=== PATIENT | female | born 1975 | race Caucasian/White ===

== ENCOUNTER 2019-11-21 04:59 | Day surgery (SDC) | payer OTHER ==
[2019-11-18 13:49] VITALS: BMI 37.8
--- NOTE | 2019-11-21 10:47 | HP ---
History & Physical Update - History History: No Change - Physical Physical: No Change - Assessment Assessment: No Change - Plan Plan: No Change (No change in HP)
[2019-11-21] MEDS ORDERED: IBUPROFEN 400 MG TABLET (FP) PO PRN (10:48)
[2019-11-21] MEDS ORDERED: ACETAMINOPHEN 325 MG TABLET (FP) PO PRN (10:48)
--- NOTE | 2019-11-21 10:48 | OP ---
Operative Note - Note: Operative Date: 11/21/19 Pre-Operative Diagnosis: Missed Operation: Suction DC Post-Operative Diagnosis: Same as Pre-op Surgeon: Elvira Lott Anesthesia: General Operative Report Dictated: Yes
[2019-11-21] MEDS ORDERED: OXYTOCIN 20 UNITS in 0.9% NS 20 UNIT/1,000 ML INFUS.BAG IV SCH (11:00)
[2019-11-21 12:13] LABS: INR 0.99 (0.83-1.09); PROTHROMBIN TIME (PATIENT) 11.7 SEC (9.7-13.0)
[2019-11-21] MEDS ORDERED: LIDOCAINE HCL/PF 2% SDV 5ML VIAL ONE (13:38)
[2019-11-21] MEDS ORDERED: PROPOFOL 20 ML ONE (13:39)
[2019-11-21] MEDS ORDERED: MIDAZOLAM HCL 2 MG/2 ML SINGLE DOSE VIAL ONE (13:39)
[2019-11-21] MEDS ORDERED: OXYTOCIN 10 UNITS/ML VIAL ONE (16:45)
[2019-11-21] MEDS ORDERED: ONDANSETRON 4 MG/2 ML VIAL IVPUSH PRN (16:57)
[2019-11-21] MEDS ORDERED: oxyCODONE HCL 5 MG TABLET PO PRN (16:57)
[2019-11-21] MEDS ORDERED: PROMETHAZINE HCL 25 MG/1 ML VIAL IVPUSH PRN (16:57)
[2019-11-21 17:24] VITALS: PULSE 88; TEMP 97.7
[2019-11-21 18:22] VITALS: BP 127/69
--- NOTE | 2019-11-30 08:34 | PATH ---
Surgical Pathology Report Patient Name: JOHNNA CHRISTY [facility]. Rec. #: [id number] /Age/Gender: 1975 (Age: 44) / F Account: [id number] Location: [facility] Taken: 11/21/2019 Received: 11/22/2019 Reported: 11/30/2019 Physicians: Elvira Lott M.D. Specimen(s) Received CONTENTS OF UTERUS Clinical History Missed Final Diagnosis CONTENTS OF UTERUS, SUCTION DILATION AND CURETTAGE: COMPLETE HYDATIDIFORM MOLE (DIPLOID/P57 -). SEE COMMENT. Marker Result Ploidy P57 Negative DNA Index/Ploidy 1.00 Diploid % S-Phase 11.7 Comment: The p57 result refers to villous stromal cells and villous cytotrophoblast. Intermediate trophoblast is p57 positive. This case was sent to Dr. Reinaldo Molina from [place], [place] ([id number]) the diagnosis above reflects his opinion. Electronically Signed Neelam Rivers M.D. Addendum Reported: 11/30/2019 Addendum Diagnosis Case discussed with Dr. Lott, 11/30/19. Neelam Rivers M.D. Gross Description Received in formalin labeled "contents of uterus," is a 19.0 x 12.5 x 3.0 cm aggregate of spaulding red soft tissue fragments. Villous tissue is identified. No somatic tissue is identified. Inside Polisher sections are submitted in 3 cassettes. /11/22/2019 saudi/11/22/2019
--- NOTE | 2019-11-30 16:25 | OP ---
DATE OF OPERATION: 11/21/2019 PREOPERATIVE DIAGNOSIS: Missed . OPERATION: Suction dilatation and curettage. POSTOPERATIVE DIAGNOSIS: Missed . SURGEON: Elvira Lott MD ESTIMATED BLOOD LOSS: Approximately 500 mL. DESCRIPTION OF PROCEDURE: Patient was taken to the operating room, placed in supine position, prepped and draped in the usual sterile fashion. Timeout was performed in accordance with hospital regulation. Speculum was placed in the vagina. Anterior lip of the cervix was grasped. Large amount of Suction curettage was then performed. Specimen was submitted to pathology. All instruments were then removed. Uterine massage was done with pitocin. Patient tolerated the procedure well, was taken to recovery room in stable condition. ELVIRA LOTT M.D. [id number] MTDD
== END 2019-11-21 18:10 | disposition home or self-care (01) ==
LOC: JASU-SURG 04:59
PROVIDERS: ATTEND Obstetrics & Gynecology
PROC: 10D17ZZ Extraction of Products of Conception, Retained, Via Natural or Artificial Opening (ICD-10-PCS; principal; 2019-11-21 13:00)
DX: O02.1 Missed abortion (principal)
CPT/HCPCS: 36415; 85610; 86900; 88305-TC; 94760

== ENCOUNTER 2020-01-10 05:13 | Day surgery (SDC) | payer OTHER ==
[2020-01-06 15:59] VITALS: BMI 37.8
[2020-01-10] MEDS ORDERED: CEFAZOLIN 2 GM/D5W 2 GM/50 ML ML IVPB ONE (07:05)
--- NOTE | 2020-01-10 15:57 | HP ---
History & Physical Update - History History: No Change - Physical Physical: No Change - Assessment Assessment: No Change - Plan Plan: No Change
[2020-01-10] MEDS ORDERED: MIDAZOLAM HCL 2 MG/2 ML SINGLE DOSE VIAL ONE (15:59)
[2020-01-10] MEDS ORDERED: ROCURONIUM BROMIDE 50 MG/5 ML SYRINGE ONE (15:59)
[2020-01-10] MEDS ORDERED: PROPOFOL 20 ML ONE (15:59)
[2020-01-10] MEDS ORDERED: SUCCINYLCHOLINE CHLORIDE 200 MG/10 ML SYRINGE ONE (15:59)
[2020-01-10] MEDS ORDERED: fentaNYL CITRATE 250 MCG/5 ML VIAL ONE (15:59)
[2020-01-10] MEDS ORDERED: ceFAZolin SODIUM 1 GM VIAL ONE (16:03)
[2020-01-10] MEDS ORDERED: LIDOCAINE HCL/PF 2% SDV 5ML VIAL ONE (16:03)
[2020-01-10] MEDS ORDERED: SEVOFLURANE 250 ML BTL ONE (16:04)
[2020-01-10] MEDS ORDERED: DESFLURANE GAS 240 ML BOTTLE IH ONE (16:06)
[2020-01-10] MEDS ORDERED: ceFAZolin SODIUM 1 GM VIAL IVPB ONE (16:25)
[2020-01-10] MEDS ORDERED: ONDANSETRON 4 MG/2 ML VIAL IVPUSH PRN (16:30)
[2020-01-10] MEDS ORDERED: LACTATED RINGERS SOLUTION 1,000 ML IV SCH (16:30)
[2020-01-10] MEDS ORDERED: ACETAMINOPHEN 1000 MG/100 ML VIAL (NON FORMULARY) IVPB PRN (16:31)
[2020-01-10] MEDS ORDERED: BUPIVACAINE HCL/PF 0.5% (5 MG/ML) 30 ML VIAL IJ ONE ×2 (16:50)
[2020-01-10] MEDS ORDERED: NEOSTIGMINE METHYLSULFATE 0.5 MG/ML - 10 ML MDV ONE (18:14)
[2020-01-10] MEDS ORDERED: KETOROLAC TROMETHAMINE 30 MG/1 ML VIAL ONE (18:21)
[2020-01-10] MEDS ORDERED: DEXAMETHASONE SOD PHOSPHATE 4 MG/1 ML VIAL ONE (18:21)
--- NOTE | 2020-01-10 18:38 | OP ---
Operative Note - Note: Operative Date: 01/10/20 Pre-Operative Diagnosis: General Trophoblastic Disease Operation: Robotic laprascopic abdominal hysterectomy, bilateral salpingectomy, cervical myomectomy Post-Operative Diagnosis: Same as Pre-op Surgeon: Denisha Santiago Terrapin Fisher: Tavo Jackson Anesthesia: General Specimens Removed: Uterus, bilateral tubes, cervical fibroid Estimated Blood Loss (mls): 100 Drains, Volume Out (mls): 400 (arrieta) Fluid Volume Replaced (mls): 900 (LR) Operative Report Dictated: Yes
--- NOTE | 2020-01-10 18:39 | SURG ---
Surgery Mechanical Applications Engineer Note Mechanical Applications Engineer: Tavo Jackson PA-C Date of Service: 01/10/20 Diagnosis: General Trophoblastic Disease Procedure: Robotic laprascopic hysterectomy, bilateral salpingectomy, cervical myomectomy I was present for the entirety of the operative procedure. For further detail, please refer to operative report. Visit type - Case Type Case Type: Scheduled - New patient This patient is new to me today: Yes Date on this admission: 01/10/20
[2020-01-10] MEDS ORDERED: ACETAMINOPHEN 1000 MG/100 ML VIAL (NON FORMULARY) IVPB ONE (18:40)
[2020-01-10] MEDS ORDERED: ACETAMINOPHEN INJECTION 100 ML IVPB ONE (20:09)
[2020-01-10] MEDS: oxyCODONE HCL 5 MG TABLET PO PRN (23:00)
[2020-01-10] MEDS: CEFAZOLIN 2 GM/D5W 2 GM/50 ML ML IVPB SCH (23:20)
[2020-01-11] MEDS: ACETAMINOPHEN 325 MG TABLET (FP) PO PRN ×2 (05:10→10:29)
[2020-01-11] MEDS: CEFAZOLIN 2 GM/D5W 2 GM/50 ML ML IVPB SCH (08:17)
[2020-01-11 08:24] LABS: HEMATOCRIT 36.4 % (32.4-45.2); HEMOGLOBIN 11.6 GM/dL (10.7-15.3); MCH 26.7 pg (25.7-33.7); MEAN CELL VOLUME 83.4 fl (80-96); PLATELET COUNT 286 K/MM3 (134-434); RBC 4.36 M/mm3 (3.60-5.2); RDW 13.7 % (11.6-15.6)
[2020-01-11 08:39] LABS: BLOOD UREA NITROGEN 7.8 mg/dL (7-18); CALCIUM 8.2 mg/dL (8.5-10.1); CREATININE 0.6 mg/dL (0.55-1.3); POTASSIUM 3.9 mmol/L (3.5-5.1)
[2020-01-11] MEDS ORDERED: ENOXAPARIN NA (PORCINE) 40 MG/0.4 ML DISP.SYRIN SQ SCH (10:00)
--- NOTE | 2020-01-11 10:21 | PN ---
Progress Note (short form) - Note Progress Note: POD 1, s/p Robotic laparoscopic hysterectomy, bilateral salpingectomy, cervical myomectomy Pt seen and examined. Reports some pain this AM, improved by pain regimen. Has not been oob yet. Has not eaten yet. No n/v. Denies cp/sob, n/v/d, no issues overnight. Vital Signs Temp 99.2 F 01/11/20 06:00 Pulse 98 H 01/11/20 06:00 Resp 20 01/11/20 06:00 BP 120/99 01/11/20 06:00 Pulse Ox 98 01/11/20 06:00 Intake & Output 01/10/20 01/10/20 01/11/20 11:59 23:59 11:59 Intake Total 1200 Output Total 450 Balance 750 Intake: IV 1200 Output: Urine 400 Estimated Blood Loss 50 CBC, BMP 01/11/20 07:07 01/11/20 07:07 Gen: awake, alert, nad Resp: unlabored on RA Abdo: soft, minimal ttp at incision sites. Incisions c/d/i with dermabond in place, no erythema or drainage. Hypoactive bowel sounds A/P: 44 y/o F w/ PMHx obesity, trophoblastic disease, now POD 1, s/p Robotic laparoscopic hysterectomy, bilateral salpingectomy, cervical myomectomy. doing well post op, labs reviewed plan for d/c today all d/c instructions reviewed with pt at length, pt verbalized understanding. d/w attending Dr Santiago
[2020-01-11] MEDS ORDERED: oxyCODONE HCL 5 MG TABLET PO PRN (10:24)
[2020-01-11] MEDS ORDERED: ACETAMINOPHEN 325 MG TABLET (FP) PO PRN (10:24)
[2020-01-11] MEDS ORDERED: KETOROLAC TROMETHAMINE 15 MG/ML VIAL IVPUSH ONE (10:24)
[2020-01-11] MEDS: oxyCODONE HCL 5 MG TABLET PO PRN (10:28)
--- NOTE | 2020-01-11 10:34 | PN ---
Progress Note (short form) - Note Progress Note: Post op day#1.S/P C Section under spinal anesthesia with Duramorph une ventful.Patient stable and c/o little pain for which she is on medication.No any anesthesia related problem.Patient Dc from the anesthesia care.
[2020-01-11 13:31] VITALS: BP 123/72; PULSE 82; TEMP 99.4
[2020-01-11] MEDS ORDERED: ACETAMINOPHEN 500 MG TABLET (FP) PO PRN (14:05)
--- NOTE | 2020-01-11 15:16 | OP ---
DATE OF OPERATION: 01/10/2020 PREOPERATIVE DIAGNOSIS: Gestational trophoblastic disease. POSTOPERATIVE DIAGNOSIS: Gestational trophoblastic disease and cervical myoma. PROCEDURE: Robotic-assisted total hysterectomy, bilateral salpingectomy. SURGEON: Denisha Santiago MD HEADMASTER/MISTRESS: EDU Goel ANESTHESIA: General endotracheal and local. ESTIMATED BLOOD LOSS: 50 mL. COMPLICATIONS: None. INDICATIONS: This is a 44-year-old, 4, para 3, with history of a molar , complete mole. She had a dilation and curettage on November 21, 2019. Beta hCGs were initially declining but then started to rise. She received methotrexate on December 27. Her beta hCG at that time was 810. She developed a full-body rash and burning. She was admitted and treated with steroids and Benadryl. Subsequently she had a chest x-ray preoperatively which was negative, and a CT scan of the abdomen and pelvis which showed a left lower pulmonary nodule as well as a 1.4-cm cyst in the liver but no evidence of metastatic disease. Patient was counseled regarding surgical management. Risks, benefits, indications, alternatives were discussed with the patient. All questions were answered. Informed consent was signed. She understood that she could not have further pregnancies after hysterectomy. FINDINGS: Cervix: No lesions. It was enlarged and bulbous. Intraabdominal findings: Normal liver edge, normal diaphragm, uterus approximately 10 weeks size and globular, bilateral tubes and ovaries were normal. There was no intraabdominal evidence of disease. There was an approximately 3 cm myoma on the anterior right lateral cervix. PROCEDURE: The patient was taken to the operating room, placed in the dorsal supine position. General endotracheal anesthesia was obtained without difficulty. She was placed in the dorsal lithotomy position in Mario stirrups and prepped and draped in the normal sterile fashion. Felix catheter was placed in the bladder. Speculum was placed in the vagina. The cervix was grasped with a single-tooth tenaculum. At this point, we decided not to place a uterine manipulator and would use a sponge stick. Tenaculum and speculum were then removed. Attention was turned to the patient's abdomen. Then 5 mL of 0.25% Marcaine was injected into the umbilicus, and an 8-mm incision was made with a scalpel. While tenting the anterior abdominal wall, the Veress was inserted intraabdominally, and the abdomen was insufflated with CO2 gas. An 8-mm trocar was placed. Intra-abdominal placement was confirmed by direct visualization with the laparoscope. Additional 8-mm trocars placed in the left lower quadrant and right mid quadrant, and a 5-mm payroll assistant port was placed in the right lower quadrant. All trocars were placed under direct visualization after injecting 0.25% Marcaine. A thorough exam of the abdomen and pelvis revealed the above-noted findings. The right fimbria was grasped and right mesosalpinx was clamped, cauterized and transected. This was carried through to the uteroovarian ligament and the round ligament on the right. The left fimbria was grasped. The left mesosalpinx was clamped, cauterized and transected. This was carried through to the uteroovarian ligament and the round ligament on the left. The vesicouterine peritoneum was opened. The bladder was dissected off the anterior cervix and upper vagina. Uterine arteries bilaterally were skeletonized. They were clamped cauterized, and transected. Cardinal ligaments were serially clamped, cauterized, and transected. At this point, we noticed a large bulge on the right aspect of the cervix. We gently dissected it out from the anterior cervix. The uterosacral ligaments were clamped, cauterized, and transected. At this point we placed a [employer] uterine manipulator and a vaginotomy incision was made circumferentially on the cervix. Uterus, cervix, and tubes, as well as the cervical myoma, were placed in a large EndoCatch bag and handed off the field. The vaginal cuff was closed in a running continuous fashion using 2-0 V-Loc. The pelvis was thoroughly irrigated with saline and noted to be hemostatic. Surgicel was placed on the vaginal cuff and pedicles for added assurance. All instruments were removed from the patient's abdomen. The da Ruben robot was then undocked. We again looked intra-abdominally. Excellent hemostasis was seen. All trocars were removed. Felix catheter was removed. Skin was closed with 4-0 Monocryl and Dermabond was applied. The patient was extubated and transferred in stable condition to the PACU. Sponge, needle, instrument counts were correct x2. Lyndsey [id number]
--- NOTE | 2020-01-16 15:54 | PATH ---
Surgical Pathology Report Patient Name: JOHNNA CHRISTY [facility]. Rec. #: [id number] /Age/Gender: 1975 (Age: 44) / F Account: [id number] Location: [facility] Taken: 01/10/2020 Received: 01/11/2020 Reported: 01/16/2020 Physicians: Denisha Santiago MD Specimen(s) Received A: UTERUS, CERVIX, FALLOPIAN TUBES B: CERVICAL MYOMA Clinical History Gestational trophoblastic disease Final Diagnosis A. UTERUS, CERVIX, FALLOPIAN TUBES, ROBOTIC ASSISTED TOTAL HYSTERECTOMY AND BILATERAL SALPINGECTOMY: INVASIVE HYDATIDIFORM MOLE. TUMOR MEASURES 1.1 CM (GROSS MEASUREMENT). MYOMETRIAL INVASION IDENTIFIED.NO LYMPHOVASCULAR INVASION IDENTIFIED. SURGICAL MARGINS ARE NEGATIVE.PROLIFERATIVE ENDOMETRIUM AND ENDOMETRIAL POLYP. INTRAMURAL LEIOMYOMA(TA). CERVIX WITH FOCAL ACUTE AND CHRONIC CERVICITIS AND SQUAMOUS METAPLASIA. BILATERAL FALLOPIAN TUBES WITH PARATUBAL CYSTS AND ENDOSALPINGOSIS (INCLUDING FIMBRIATED END AND FULL LUMINAL SECTION). SEE CASE SUMMARY. SEE COMMENT. B. CERVICAL MYOMA, MYOMECTOMY: 34 G, LEIOMYOMA. 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 Case seen in intradepartmental review with consensus on diagnosis. Comments Surgical Pathology Case Summary AJCC TNM Staging 8th Edition Procedure _X_ Robotic assisted total hysterectomy Specimen Integrity _X_ Intact Tumor Site _X_ Uterine corpus Tumor Size Greatest dimension (centimeters): 1.1 cm (gross measurement) Histologic Type _X_ Hydatidiform mole, invasive Other Tissue/Organ Involvement _X_ Not identified Margins _X_ Uninvolved by tumor Lymphovascular Invasion _X_ Not identified Pathologic Stage Classification (pT, pM, AJCC 8th Edition) Primary Tumor (pT) _X_ pT1: Tumor confined to uterus FIGO Stage (2015 FIGO Cancer Report) _X_ I: Disease confined to the uterus Electronically Signed Neelam Rivers M.D. Addendum Reported: 01/16/2020 Addendum Diagnosis Findings discussed with Dr. Santiago, 01/16/20. Neelam Rivers M.D. Gross Description A. Received in formalin labeled "uterus, cervix, fallopian tubes," is a 210 g uterus with an attached cervix and bilateral attached fallopian tubes. The specimen measures 11.5 cm from superior to inferior, 7.5 cm from left to right and 6 cm from anterior to posterior. The serosa is spaulding-reed and smooth. The attached cervix measures 4.5 cm in length and averages 2.2 cm in diameter. The ectocervix is spaulding, smooth and glistening. The endocervix is unremarkable. The endometrial cavity measures 4.5 cm in length and 2.8 cm from cornu to cornu. The endometrium is focally thickened and measures up to 0.4 cm in thickness. There is a focal possible polypoid area in the anterior-inferior endometrium. The posterior-superior myometrium displays a 1.1 cm in greatest dimension hemorrhagic nodule. The remaining myometrium is spaulding gayle with focal intramural nodules measuring up to 1.4 cm in greatest dimension. The cut surface of the nodules is spaulding and rubbery with whorled architecture. No areas of hemorrhage or necrosis are identified. The remaining myometrium is spaulding gayle and averages 2.8 cm in thickness. The left fimbriated fallopian tube measures 4.5 cm in length. There is a 0.8 cm greatest dimension paratubal cyst attached to the fimbria. The remaining outer surface is spaulding-reed and smooth. Sectioning reveals an unremarkable lumen. The right fimbriated fallopian tube measures 6.5 cm in length. There is a 0.6 cm in greatest dimension paratubal cyst attached to the fimbria. The remaining outer surface is spaulding-reed and smooth. Sectioning reveals an unremarkable lumen. Direct Care Worker sections are submitted in 18 cassettes as follows: 1-anterior cervix; 2-posterior cervix; 0-0-euqnsncu endomyometrium; 5-anterior/inferior endomyometrium (possible polyp); 6-7-zbuomgbya endomyometrium; 1-25-wslnebgn submitted posterior myometrial hemorrhagic nodule; 71-87-[id number] intramural nodules; 15-left fallopian tube fimbria and paratubal cyst; 16-cross sections of left fallopian tube; 17-right fallopian tube fimbria and paratubal cyst; 18-cross sections of right fallopian tube. B. Received in formalin labeled "cervical myoma" is a 34 g, 4.5 x 3.5 x 3.4 cm spaulding, firm nodule, consistent with a fibroid. The cut surface of the fibroid is spaulding and rubbery with whorled architecture. No areas of hemorrhage or necrosis are identified. Direct Care Worker sections are submitted in 3 cassettes. 01/12/2020 [facility]01/12/2020
== END 2020-01-11 17:30 | disposition home or self-care (01) ==
LOC: JASU-SURG 05:13 → J6S 22:48 → JASU-SURG 01-11 17:30
PROVIDERS: ATTEND Obstetrics & Gynecology Gynecologic Oncology
PROC: 0UT74ZZ Resection of Bilateral Fallopian Tubes, Percutaneous Endoscopic Approach (ICD-10-PCS; 2020-01-10)
PROC: 0UT94ZZ Resection of Uterus, Percutaneous Endoscopic Approach (ICD-10-PCS; principal; 2020-01-10 14:00)
DX: O01.9 Hydatidiform mole, unspecified (principal); D25.9 Leiomyoma of uterus, unspecified
CPT/HCPCS: 36415; 80048; 84702; 84703; 85027; 86850; 86900; 86901; 88305-TC; 88309-TC; 94760; J0131